=== PATIENT | male | born 1985 | race Caucasian/White ===

== ENCOUNTER 2017-07-18 11:28 | Emergency (ER) | payer MEDICARE, MEDICAID ==
[~2017-07-18] VITALS: Ht 175.3 cm; Wt 100.5 kg
[~2017-07-18 11:28] MED LIST: ALCO1PAD; ASPI325T PO; BLOO1KIT; BLOO1KIT65; CLOZ100T3 PO; DIPH25CA PO; FENO50TA PO; GLIP10TA6 PO; INSU1MIS; LEVEMIR SQ; LIPI10TA PO; LORA-400 PO; METF850T PO; OMEP40CA2 PO; PALI234P IM; PAXI30TA7 PO; PRIN20TA2 PO; WELLTAB39 PO; [UNRECOGNIZED DRUG - OTHER]
[2017-07-18 11:29] VITALS: BP 134/86; PULSE 131; RESP 20; TEMP 98.6; O2SAT 96
[2017-07-18] MEDS ORDERED: SODIUM CHLORIDE 0.9% FLUSH 10 ML FLUSH IV FLUSH PRN (13:45)
[2017-07-18] MEDS ORDERED: BUPR150XL PO (13:47)
--- NOTE | 2017-07-18 14:00 | PD ---
HPI Chief Complaint: Diabetic Time Seen by Provider: 13:44 Travel History International Travel<30 days: No Contact w/Intl Traveler<30days: No Traveled to known affect area: No History of Present Illness HPI Patient comes in after getting a call from his psychiatrist having found elevated blood sugar on his blood work is done yesterday. Patient states he is compliant with his diabetes medication last took his meds last night. Patient states he has not taken them today. Patient denies any symptoms. Denies any chest pain, shortness of breath, excessive thirst, increased urination, or abdominal pain. Patient states his blood sugars usually run between 100-200. Denies anything making it better or worse. PFSH Past Medical History Anxiety: Yes Depression: Yes Diabetes: Yes Patient Takes Glucophage: Yes Diminished Hearing: No GERD: Yes Psychiatric: Yes Tetanus Vaccination: Unknown Influenza Vaccination: No Past Surgical History Surgical History: No Previous Surgery Social History Alcohol Use: No Tobacco Use: Yes (1 ppd) Substance Use: No Allergies-Medications (Allergen,Severity, Reaction): Coded Allergies: No Known Allergies (Verified , 07/18/17) Reported Meds & Prescriptions Reported Meds & Active Scripts Active Reported Wellbutrin Xl 24 HR (Bupropion HCl) 150 Mg Tab 150 Mg PO DAILY Paxil (Paroxetine HCl) 30 Mg Tab 30 Mg PO HS Tricor (Fenofibrate) 145 Mg Tab 145 Mg PO DAILY Takw with food. Invega Sustenna Inj (Paliperidone Palmitate) 234 Mg/1.5 Ml Inj 234 Mg IM Q28D Clozapine 100 Mg Tab 150 Mg PO DAILY Review of Systems Except as stated in HPI: all other systems reviewed are Neg Physical Exam Narrative GENERAL: Well-developed, overly nourished, in no acute distress, and non-ill appearing. SKIN: Focused skin assessment warm and dry. HEAD: Atraumatic. Normocephalic. EYES: Pupils equal and round. EOMI. No scleral icterus. No injection or drainage. ENT: No nasal bleeding or discharge. Mucous membranes pink and moist. NECK: Trachea midline. Supple. No nuclear rigidity. CARDIOVASCULAR: Regular rate and rhythm. No murmur appreciated. RESPIRATORY: No accessory muscle use. No respiratory distress. Clear to auscultation. Breath sounds equal bilaterally. MUSCULOSKELETAL: No obvious deformities. No clubbing. No cyanosis. No edema. Full range of motion. NEUROLOGICAL: Awake and alert. No obvious cranial nerve deficits. Motor grossly within normal limits. Normal speech. PSYCHIATRIC: Appropriate mood and affect; insight and judgment normal. Data Data Last Documented VS Vital Signs Date Time Temp Pulse Resp B/P (MAP) Pulse Ox O2 Delivery O2 Flow Rate FiO2 07/18/17 16:32 07/18/17 14:05 98 Room Air 07/18/17 11:29 98.6 131 20 Orders Orders Electrocardiogram (07/18/17 13:44) Lipase (07/18/17 13:44) Complete Blood Count With Diff (07/18/17 13:44) Comprehensive Metabolic Panel (07/18/17 13:44) Magnesium (Mg) (07/18/17 13:44) Beta Hydroxybutyrate (Acetone) (07/18/17 13:44) Sodium Chlor 0.9% 1000 Ml Inj (Ns 1000 M (07/18/17 13:44) Urinalysis - C+S If Indicated (07/18/17 13:44) Blood Gas Venous (Vbg) (07/18/17 13:44) Iv Access Insert/Monitor (07/18/17 13:44) Ecg Monitoring (07/18/17 13:44) Oximetry (07/18/17 13:44) Sodium Chloride 0.9% Flush (Ns Flush) (07/18/17 13:45) Labs Laboratory Tests Test 07/18/17 13:44 07/18/17 14:00 07/18/17 14:04 07/18/17 15:50 Blood Gas Puncture Site LINE Blood Gas Patient Temperature 98.6 Venous Blood pH 7.36 Venous Blood Partial Pressure CO2 49 mmHg Venous Blood Partial Pressure O2 24 mmHg Venous Blood HCO3 27 mmol/L Venous Blood Oxygen Saturation 43 % Venous Blood Oxygen Content 9.0 Vol % Venous Blood Base Excess 2.5 mmol/L Oxygen Delivery Device ROOM AIR Blood Gas Inspired Oxygen 21 % White Blood Count 13.6 TH/MM3 Red Blood Count 5.25 MIL/MM3 Hemoglobin 14.6 GM/DL Hematocrit 43.8 % Mean Corpuscular Volume 83.5 FL Mean Corpuscular Hemoglobin 27.9 PG Mean Corpuscular Hemoglobin Concent 33.4 % Red Cell Distribution Width 13.9 % Platelet Count 251 TH/MM3 Mean Platelet Volume 9.0 FL Neutrophils (%) (Auto) 65.9 % Lymphocytes (%) (Auto) 24.6 % Monocytes (%) (Auto) 6.9 % Eosinophils (%) (Auto) 1.8 % Basophils (%) (Auto) 0.8 % Neutrophils # (Auto) 9.0 TH/MM3 Lymphocytes # (Auto) 3.4 TH/MM3 Monocytes # (Auto) 0.9 TH/MM3 Eosinophils # (Auto) 0.2 TH/MM3 Basophils # (Auto) 0.1 TH/MM3 CBC Comment DIFF FINAL Differential Comment Blood Urea Nitrogen 11 MG/DL Creatinine 1.01 MG/DL Random Glucose 353 MG/DL Total Protein 8.0 GM/DL Albumin 4.1 GM/DL Calcium Level 9.3 MG/DL Magnesium Level 1.7 MG/DL Alkaline Phosphatase 105 U/L Aspartate Amino Transf (AST/SGOT) 43 U/L Alanine Aminotransferase (ALT/SGPT) 75 U/L Total Bilirubin 0.4 MG/DL Sodium Level 132 MEQ/L Potassium Level 4.0 MEQ/L Chloride Level 98 MEQ/L Carbon Dioxide Level 28.3 MEQ/L Anion Gap 6 MEQ/L Estimat Glomerular Filtration Rate 86 ML/MIN Lipase 152 U/L B-Hydroxybutyrate 0.25 MMOL/L Urine Color YELLOW Urine Turbidity CLEAR Urine pH 6.5 Urine Specific Strawn 1.037 Urine Protein 30 mg/dL Urine Glucose (UA) 1000 mg/dL Urine Ketones 10 mg/dL Urine Occult Blood NEG Urine Nitrite NEG Urine Bilirubin NEG Urine Urobilinogen LESS THAN 2.0 MG/DL Urine Leukocyte Esterase NEG Urine RBC 1 /hpf Urine WBC LESS THAN 1 /hpf Microscopic Urinalysis Comment CULT NOT INDICATED MDM Medical Decision Making Medical Screen Exam Complete: Yes Emergency Medical Condition: Yes Interpretation(s) EKG reviewed by Dr. Mason shows sinus tachycardia with ventricular rate of 114. No STEMI Differential Diagnosis DKA, hyperglycemia, electrolyte abnormality, UTI, other Narrative Course The patient has diabetes and was found to have elevated blood sugars. The patient is asymptomatic. The patient denies any polydipsia/polyuria. The patient has not experience extreme fatigue and irritability. The patient denies any current infections and has no slow healing cuts or bruises. The patient has no clinical findings of concurrent infection or UTI as well. The patient looks great and does not appear ill or dehydrated and is tolerating fluids. There is no clinical or laboratory evidence to support DKA. The hyperglycemia may be due to noncompliance with ADA diet alone but may also be due to poorly controlled diabetes. Regardless the patient is stable, tolerating fluids, hydrated and non ill appearing and may be discharged home with acute follow up with Primary Care physician and undergo outpatient evaluation for possible adjustment of diabetic medication. The patient agreed with plan. Patient in no obvious distress upon re-evaluation. All pertinent laboratory result(s) discussed with patient. Discussed patient with Dr. Mason prior to discharge, who is in agreement with plan of care and disposition. Any questions /concerns in reference to patient diagnosis/condition discussed and clarified prior to patient's discharge. Reinforced sheer importance of close follow up with patient's primary physician or primary care clinic. Instructed patient to return to ED immediately, if symptoms return/worsen. Patient showed understanding of above instructions. Further instructions and recommendations were detailed in discharge paperwork. Patient ambulated without difficulty out of ED at discharge. Diagnosis Primary Impression: Hyperglycemia Patient Instructions: Diabetic Hyperglycemia (ED), General Instructions Additional Instructions: Follow-up with your primary care physician next week for reevaluation. Return to the emergency department if symptoms get worse. Disposition: 01 DISCHARGE HOME Condition: Stable Carlo Red Jul 18, 2017 14:00
[2017-07-18 14:05] VITALS: O2SAT 98
[2017-07-18 14:05] LABS: BLOOD GAS VENOUS BASE EXCESS 2.5 mmol/L (-2-2); BLOOD GAS VENOUS HCO3 27 mmol/L (22-26); BLOOD GAS VENOUS O2 HGB SAT 43 % (70-76); BLOOD GAS VENOUS PCO2 49 mmHg (44-48); BLOOD GAS VENOUS pH 7.36 (7.360-7.400); TEMP CORR TO 98.6
[2017-07-18 14:06] LABS: BLOOD GAS VENOUS PO2 24 mmHg (35-40)
[2017-07-18 14:08] LABS: CRITICAL VALUE YES; DRAW SITE LINE; FIO2 21 %; OXYGEN DEVICE ROOM AIR; STAT YES
[2017-07-18 14:17] LABS: BASOPHIL # 0.1 TH/MM3 (0-0.2); BASOPHIL % 0.8 % (0.0-2.0); EOSINOPHIL # 0.2 TH/MM3 (0-0.4); EOSINOPHIL % 1.8 % (0.0-4.0); HEMATOCRIT 43.8 % (39.0-51.0); HEMO FLAGS DIFF FINAL; LYMPH % 24.6 % (9.0-44.0); LYMPHOCYTE # 3.4 TH/MM3 (1.0-4.8); MEAN CELL VOLUME 83.5 FL (80.0-100.0); MEAN CORPUSCULAR HEMOGLOBIN 27.9 PG (27.0-34.0); MEAN CORPUSCULAR HGB CONC 33.4 % (32.0-36.0); MONO % 6.9 % (0.0-8.0); NEUT % 65.9 % (16.0-70.0); PLATELET COUNT 251 TH/MM3 (150-450); RED BLOOD COUNT 5.25 MIL/MM3 (4.50-5.90); RED CELL DISTRIBUTION WIDTH 13.9 % (11.6-17.2); WHITE BLOOD COUNT 13.6 TH/MM3 (4.0-11.0)
[2017-07-18] MEDS: SODIUM CHLOR 0.9% 1000 ML INJ 1,000 ML IV SCH ×2 (14:34→15:33)
[2017-07-18 14:39] LABS: ANION GAP 6 MEQ/L (5-15); AST (GOT) 43 U/L (15-37); BICARBONATE 28.3 MEQ/L (21.0-32.0); BLOOD UREA NITROGEN 11 MG/DL (7-18); CHLORIDE 98 MEQ/L (98-107); GLOMERULAR FILTRATION RATE 86 ML/MIN (>89); MAGNESIUM 1.7 MG/DL (1.5-2.5); SODIUM (NA) 132 MEQ/L (136-145)
[2017-07-18 14:48] LABS: ALKALINE PHOSPHATASE 105 U/L (45-117); ALT (GPT) 75 U/L (12-78); BETA-HYDROXYBUTYRATE 0.25 MMOL/L (0.00-0.39); TOTAL BILIRUBIN ADULT 0.4 MG/DL (0.2-1.0)
[2017-07-18 16:00] LABS: BLOOD, URINE NEG (NEG); COMMENT (UR) CULT NOT INDICATED; CULTURE IF INDICATED CULT NOT INDICATED; GLUCOSE,URINE 1000 mg/dL (NEG); KETONE, URINE 10 mg/dL (NEG); NITRITE,URINE NEG (NEG); PH, URINE 6.5 (5.0-8.5); URINE COLOR YELLOW (YELLW/STRAW)
--- NOTE | 2017-07-19 10:21 | EKG ---
Date Performed: 07/18/2017 Time Performed: 13:57:55 PTAGE: 31 years EKG: SINUS TACHYCARDIA POSSIBLE RIGHT VENTRICULAR CONDUCTION DELAY Compared to previous tracing the rate is now faster ABNORMAL RHYTHM ECG PREVIOUS TRACING : 08/01/1999 12.48 DOCTOR: Aman Dunaway Interpretating Date/Time 07/19/2017 10:16:59
[2017-07-30] MEDS ORDERED: LEVEMIR SQ (16:29)
[2017-07-30] MEDS ORDERED: OMEP40CA2 PO (16:55)
[2017-07-30] MEDS ORDERED: ATOR10TA15 PO (16:55)
[2017-07-30] MEDS ORDERED: LISI-515 PO (16:55)
[2017-07-30] MEDS ORDERED: METF850T PO (16:55)
[2017-07-30] MEDS ORDERED: ALLE10TA PO (16:55)
[2017-07-30] MEDS ORDERED: ASPI325T PO (16:55)
[2017-07-30] MEDS ORDERED: GLIP10TA6 PO (16:55)
[2017-07-30] MEDS ORDERED: BANO25TA (16:55)
== END 2017-07-18 16:44 | disposition home or self-care (01) ==
LOC: NEPE 11:28
DX: E11.65 Type 2 diabetes mellitus with hyperglycemia (principal); R94.31 Abnormal electrocardiogram [ECG] [EKG]; Z72.0 Tobacco use
CPT/HCPCS: 80053; 81001; 82010; 82805; 83690; 83735; 85025; 93005; 96360; 96361; 99284; J7030